=== PATIENT | female | born 1985 | race Caucasian/White ===

== ENCOUNTER → 2023-07-02 | Emergency (ER) | payer BC ==
[~2023-07-02] MED LIST: FAMOTIDINE 20 MG/2 ML VIAL IV ONE; KETOROLAC 30 MG/ML INJ ONE; NA CHLORIDE 0.9% 1,000 ML ONE; ONDANSETRON 4 MG/2 ML VIAL ONE
--- OUTSIDE RECORDS SUMMARY | 2023-07-02 13:42 | XMS REPORT | Clinical Summary ---
Author Name Unknown Organization [facility] Address [address] [place] [address] Care Team Providers Care Professor Of Art Name Role Phone Kalia Brooks MD Primary Care Provider [phone] Radha Campbell MD Unavailable [phone] Per Elder MD Unavailable Mariya Piper MD Unavailable Ike Pickett MD Unavailable Allergies Active Allergy Reactions Criticality Noted Date Comments Adhesive Tape-Silicones Rash Medium 04/08/2021 Latex Hives,Itching,Rash High 05/09/2020 Lidocaine-Epinephrin e Other (See Comments) Medium 10/27/2020 Patient stated when she received Lidocaine with Epi in the [facility] office, she "passed out". [facility] stated that patient may be having a reaction to the Epi. Sulfa (Sulfonamide Antibiotics) Rash Medium 09/12/2020 Topiramate Other (See Comments) 08/08/2021 Makes her sleepy Medications Medication Sig Dispensed Refills Start Date End Date Status LORazepam (ATIVAN) 0.5 mg tablet Take 1 tablet (0.5 mg) by mouth as needed. 0 Active esomeprazole (NexIUM) 40 MG capsule Take 1 capsule (40 mg) by mouth daily. 0 06/16/2019 Active medroxyPROGESTERone (DEPO-PROVERA) 150 mg/mL syrg injection Inject 1 mL (150 mg) into the shoulder, thigh, or buttocks every 3 (three) months. 0 01/21/2021 Active aspirin-acetaminophen -caffeine (EXCEDRIN MIGRAINE) 250-250-65 mg per tablet Take 1 tablet by mouth every 6 (six) hours as needed for headaches. 0 Active ibuprofen (ADVIL,MOTRIN) 200 mg tablet Take 1 tablet (200 mg) by mouth as needed. 0 Active Active Problems No known active problems Encounters Date Type Department Care Team Description 11/30/2022 11:00 AM CDT Telemedicine [facility] Main [facility], 7th [place] [address] Kalia Brooks MD Pituitary adenoma (Primary Dx); Benign neoplasm of cerebral meninges 11/16/2022 1:15 PM CDT Ancillary Procedure [facility] [address] [facility], 4th [place] [address] Sheri Winn APRN Pituitary adenoma; Benign neoplasm of cerebral meninges 11/16/2022 Travel 11/06/2022 12:30 PM CDT Office Visit [facility] [address] [place] [address], 7th [place] [address] Kalia Brooks MD Benign neoplasm of cerebral meninges (Primary Dx); Pituitary adenoma 11/06/2022 10:15 AM CDT Ancillary Procedure [facility] [address] [place] [address], 3rd [place] [address] Tiffani Ruiz APRN Pituitary adenoma 11/06/2022 Orders Only Neuroradiology [address] [place] [id number] Kaci Piper MD 11/06/2022 Travel after 07/02/2022 Surgical History Surgery Date Site/Laterality Comments COLONOSCOPY 06/17/2013 - 06/16/2014 BRAIN SURGERY 06/17/2019 - 06/16/2020 Pituitary Tumor removal UPPER GASTROINTESTINAL ENDOSCOPY 06/17/2005 - 06/16/2006 RECONSTRUCTION BREAST WITH BREAST IMPLANT 06/17/2005 - 06/16/2006 Medical History Medical History Date Comments Hypertension 2016 Migraine 2016 Gastric reflux 2000 Disorder of pituitary gland 2019 Anxiety 2015 Family History Medical History Relation Name Comments Colon cancer Cousin paternal 1st cousin Relation Name Status Comments Cousin paternal 1st cousin Alive Social History Tobacco Use Types Packs/Day Years Used Date Smoking Tobacco: Former Cigarettes 0.5 10 0 06/17/2007 - 06/17/2017 Smokeless Tobacco: Never Tobacco Cessation:Counseling Given: Not Answered Alcohol Use Standard Drinks/Week Comments Not Currently 0 (1 standard drink = 0.6 oz pur e alcohol) Sex and Gender Information Value Date Recorded Sex Assigned at Female 12/10/2020 4:31 PM CDT Gender Identity Female 12/10/2020 4:31 PM CDT Sexual Orientation Straight 12/10/2020 4: 31 PM CDT Job Start Date Occupation Industry Not on file Not on file Not on file Obstetrics History Last Filed Vital Signs Vital Sign Reading Time Taken Comments Blood Pressure 129/92 11/06/2022 12:47 PM CDT Pulse 81 11/06/2022 12:47 PM CDT Temperature 36.2 C (97.2 F) 11/06/2022 1 2:47 PM CDT Respiratory Rate 17 11/06/2022 12:4 7 PM CDT Oxygen Saturation 98% 11/06/2022 12: 47 PM CDT Inhaled Oxygen Concentration - - Weight 119.9 kg (264 lb 5.3 oz) 023 12:44 PM CDT Height - - Body Mass Index 40.06 12/13/2020 8:45 AM CDT Plan of Treatment Upcoming Encounters Date Type Department Care Team Description 11/07/2023 12:15 PM CDT Ancillary Procedure [facility] [address] [place] [address] Sheri Winn, [employer] [address] [place] [address] 11/08/2023 11:00 AM CDT [facility]-Up [facility] [address] [facility] Main [facility], 7th [place] [address] Sheri Winn, [employer] [address] [place] [address] Health Maintenance Due Date Last Done Comments COVID-19 Vaccination (#1) 1985 Procedures Procedure Name Priority Date/Time Associated Diagnosis Comments MRI BRAIN W WO CONTRAST Routine 11/16/2022 2:38 PM CDT Pituitary adenoma Benign neoplasm of cerebral meninges MRI BRAIN W WO CONTRAST Routine 11/06/2022 11:41 AM CDT Pituitary adenoma after 07/02/2022 Results * MRI Brain with and without Contrast (11/16/2022 2:38 PM CDT) Only the most recent of2 resultswithin the time period is included. 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 Narrative 11/16/2022 4:22 PM CDT FULL RESULT: EXAMINATION: MRI BRAIN W WO CONTRAST on 11/16/2022 2:38 PM CLINICAL HISTORY: Pituitary adenoma Benign neoplasm of cerebral meninges INDICATION: Intracranial neoplasm (known or suspected), Metastatic cancer suspected, MRI today did not include the left calvarium meningioma- so please image this area COMPARISON: MRI brain/sella 10/13/2021 and MRI brain 04/08/2021, 05/09/2020. TECHNIQUE: MRI of the brain without and with administration of intravenous contrast. FINDINGS: Intracranial: There is absence of the superior part of the right tentorium with medial and inferior parietal and occipital lobe herniation. 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 No cerebellar tonsillar ectopia. There is no acute hemorrhage or acute infarct. There is no mass effect or midline shift. The ventricles and extra-axial spaces are appropriate for age. There is no worrisome parenchymal or leptomeningeal enhancement. Changes related to transsphenoidal resection. Please see dedicated MRI sella study from 11/06/2022. Bone: Stable focus of enhancement in the left parietal calvarium measuring 1.1 cm on series 16, image 19. There is faint intrinsic T1 hyperintensity and a speckled appearance of a hemangioma on CT. No interval change since at least 05/09/2020. Extracranial: The orbits are unremarkable. The visualized paranasal sinuses are predominantly clear. The mastoid air cells are clear. Procedure Note Cher Negron MD - 11/16/2022 FULL RESULT: EXAMINATION: MRI BRAIN W WO CONTRAST on 11/16/2022 2:38 PM CLINICAL HISTORY: Pituitary adenoma Benign neoplasm of cerebral meninges INDICATION: Intracranial neoplasm (known or suspected), Metastatic cancersuspected, MRI today did not include the left calvarium meningioma- soplease image this area COMPARISON: MRI brain/sella 10/13/2021 and MRI brain 04/08/2021,05/09/2020. TECHNIQUE: MRI of the brain without and with administration of intravenouscontrast. FINDINGS: Intracranial: There is absence of the superior part of the right tentorium with medialand inferior parietal and occipital lobe herniation. This finding is mostlikely incidental, present since at least 10/10/2020, thought to becongenital. No cerebellar tonsillar ectopia. There is no acute hemorrhage or acute infarct. There is no mass effect or midline shift. The ventricles and extra-axial spaces are appropriate for age. There is no worrisome parenchymal or leptomeningeal enhancement. Changes related to transsphenoidal resection. Please see dedicated MRIsella study from 11/06/2022. Bone: Stable focus of enhancement in the left parietal calvarium measuring 1.1cm on series 16, image 19. There is faint intrinsic T1 hyperintensity keisha speckled appearance of a hemangioma on CT. No interval change since atleast 05/09/2020. Extracranial: The orbits are unremarkable. The visualized paranasal sinuses are predominantly clear. The mastoid air cells are clear. 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 Sheri Winn APRN [facility] [place] after 07/02/2022 Care Teams Professor Of Art Relationship Specialty Start Date End Date Kalia Brooks MD [address] [place] [address] [phone] PCP - General Neurosurgery 12/01/20 Radha Campbell MD [address] [place] [address] [phone] Consulting Physician Ophthalmology 04/04/21 Per Elder MD [address] [place] [address] [phone] Consulting Physician Endocrinology 04/11/21 Mariya Piper MD [address] [place] [id number] Consulting Physician Neuro-Oncology 05/09/21 Ike Pickett MD [address] [place] [id number] Consulting Physician Pain Management 09/21/21
[2023-07-02 14:28] LABS: Absolute Lymphocytes (CBC) 0.4 K/uL (0.7-4.9); Hematocrit 45.9 % (36.0-45.0); Lymphocytes % 2.7 % (15.3-44.8); MCV 88.8 fL (80-100); MPV 8.4 fL (7.6-11.3); Platelets 251 thou/uL (152-406); RBC Red Blood Cell Count 5.17 M/uL (3.86-4.86)
[2023-07-02 14:32] LABS: Urine Bacteria None Seen /HPF (<20); Urine Bilirubin NEGATIVE (Negative); Urine Blood 1+ (Negative); Urine Clarity Extremely Turbid (Clear); Urine Color Yellow (Yellow); Urine Glucose NEGATIVE (Negative); Urine Mucus 2+ /HPF (None Seen); Urine Protein TRACE (Negative); Urine Urobilinogen Normal (Normal); Urine pH 5.5 (5.0-7.0)
[2023-07-02 14:47] LABS: Albumin 4.1 g/dL (3.4-5.0); Bilirubin Total 2.1 mg/dL (0.2-1.0); Potassium 3.8 mEq/L (3.5-5.1); Protein, Total 7.6 g/dL (6.4-8.2)
--- NOTE | 2023-07-02 15:48 | RAD REPORT ---
EXAM DESCRIPTION: CT - Abdomen Pelvis W Contrast - 07/02/2023 3:10 pm CLINICAL HISTORY: ABD PAIN COMPARISON: No comparisons TECHNIQUE: Thin cut axial CT imaging of the abdomen and pelvis was performed following intravenous a dministration of 100 mL Isovue 300. Multiplanar reformats were generated and reviewed. All CT scans are performed using dose optimization technique as appropriate and may include automated exposure control or mA/KV adjustment according to patient size. FINDINGS: No suspicious findings in the lung bases. The liver, spleen, adrenal glands, and pancreas show no suspicious findings. Gallbladder was surgical ly removed Symmetric renal function is seen with no hydronephrosis or suspicious renal mass. Mildly prominent distal small bowel loops with fluid opacification. This extends to the level of the terminal ileum. Fluid opacification within the ascending colon as well. No Bowel wall thickening. No free air, free fluid or inflammatory stranding. No hernia, mass or bulky lymphadenopathy. The urinary bladder is without significant finding. No suspicious bony findings. IMPRESSION: Fluid opacification within mildly prominent distal small bowel loops, and within the asc ending colon. Findings are nonspecific and may relate to infectious or inflammatory enterocolitis.
--- NOTE | 2023-07-02 15:54 | EDPHYS ---
Physician Documentation [facility] Name: Becky Menjivar Age: 38 yrs Sex: Female : 1985 Arrival Date: 07/02/2023 Time: 13:39 Bed 6 Private MD: ED Physician Johnnie Lam HPI: 07/02 14:49 This 38 yrs old Female presents to ER via Ambulatory with complaints of kb Nausea/Vomiting/Diarrhea. 14:49 Pt is a 38 year old female who presents for nausea, vomiting, diarrhea and abd pain kb that started at 0200 today. Denies fever. Pain is to lateral abd bilaterally. . Historical: - Allergies: 13:48 Sulfa (Sulfonamide Antibiotics); ap3 - PMHx: 13:48 Hypertensive disorder; ap3 - Immunization history:: Client reports having NOT received the Covid vaccine. - Social history:: Smoking status: Patient denies any tobacco usage or history of. ROS: 14:49 Constitutional: Negative for fever, chills, and weight loss, kb 14:49 Abdomen/GI: Positive for abdominal pain, nausea, vomiting, and diarrhea, 14:49 All other systems are negative, Exam: 14:49 Head/Face: Normocephalic, atraumatic. ENT: Moist Mucous membranes Cardiovascular: kb Regular rate Respiratory: Respirations even and unlabored. No increased work of breathing. Talking in full sentences Abdomen/GI: Soft, non-tender. No distention Skin: Warm, dry with normal turgor. Normal color. MS/ Extremity: Pulses equal, no cyanosis. Neurovascular intact. Full, normal range of motion. Neuro: Awake and alert, GCS 15, oriented to person, place, time, and situation. Moves all extremities. Normal gait. 14:49 Constitutional: The patient appears alert, awake, uncomfortable, Vital Signs: 13:46 BP 138 / 108; Pulse 116; Resp 19; Pulse Ox 100% ; Weight 108.86 kg; Height 5 ft. 9 in. ap3 ; Pain 7/10; 14:30 BP 129 / 85; Pulse 66; Resp 17; Pulse Ox 100% on R/A; me1 16:14 BP 125 / 84; Pulse 68; Resp 14; Pulse Ox 99% ; ko1 13:46 Body Mass Index 35.44 (108.86 kg, 175.26 cm) ap3 13:46 Pain Scale: Adult ap3 MDM: 13:44 Patient medically screened. kb 14:50 Data reviewed: vital signs, nurses notes. kb 15:53 Differential diagnosis: Nonspecific abd pain, gastritis, diverticulitis, viral kb gastroenteritis, gastroenteritis, colitis. Counseling: I had a detailed discussion with the patient and/or guardian regarding the historical points, exam findings, and any diagnostic results supporting the discharge/admit diagnosis, lab results, radiology results, the need for outpatient follow up, a family practitioner, to return to the emergency department if symptoms worsen or persist or if there are any questions or concerns that arise at home. 07/02 13:49 Order name: CBC with Diff kb 07/02 13:49 Order name: CMP; Complete Time: 14:48 kb 07/02 13:49 Order name: Lipase; Complete Time: 14:48 kb 07/02 13:49 Order name: Test, Urine; Complete Time: 14:33 kb 07/02 13:49 Order name: Urinalysis w/ reflexes; Complete Time: 14:33 kb 07/02 14:57 Order name: CT Abd/Pelvis - IV Contrast Only; Complete Time: 15:50 kb 07/02 13:49 Order name: IV Saline Lock; Complete Time: 14:20 kb 07/02 13:49 Order name: Labs collected and sent; Complete Time: 14:20 kb 07/02 15:51 Order name: PO challenge kb Administered Medications: 14:29 Drug: TORadol - Ketorolac IVP 15 mg IVP once Route: IVP; Site: right antecubital; me1 14:30 Drug: NS 0.9% IV 1000 ml IV at 1 bolus Per protocol; 1000 mL bolus Route: IV; Rate: 1 me1 bolus; Site: right antecubital; 14:30 Drug: Famotidine IVP 20 mg IVP once; dilute with 10 mL 0.9% NaCl; give over 2 minutes me1 Route: IVP; Site: right antecubital; 14:30 Drug: Ondansetron IVP 4 mg IVP once; over 2 minutes Route: IVP; Site: right antecubital;me1 Disposition: 16:32 Co-signature as Attending Physician, Johnnie Lam MD I reviewed the patient's care rn provided by the Advanced Practice Provider and agree with the diagnosis and treatment plan. Disposition Summary: 07/02/23 15:53 Discharge Ordered Notes: Location: Home kb Condition: Stable kb Diagnosis - Enterocolitis kb Followup: kb - With: Emergency Department - When: As needed - Reason: Worsening of condition Followup: kb - With: Private Physician - When: 2 - 3 days - Reason: Recheck today's complaints, Continuance of care, Re-evaluation by your physician Discharge Instructions: - Discharge Summary Sheet kb - Colitis kb Forms: - Medication Reconciliation Form kb - Thank You Letter kb - Antibiotic Education kb - Prescription Opioid Use kb - Patient Portal Instructions kb - Leadership Thank You Letter kb Prescriptions: - ondansetron 4 mg Oral Tablet,disintegrating - take 1 tablet ORAL route every 6 hours As needed; 12 tablet; Refills: 0, kb Product Selection Permitted - Augmentin 875-125 mg Oral Tablet - take 1 tablet ORAL route every 12 hours for 10 days; 20 tablet; Refills: 0, kb Product Selection Permitted - dicyclomine 20 mg Oral tablet - take 1 tablet ORAL route 4 times per day As needed; 20 tablet; Refills: 0, kb Product Selection Permitted Signatures: Dispatcher [employer] EDKY Bibi Majano, CHIEF CONTRACT OFFICER-C CHIEF CONTRACT OFFICER-Ckb Johnnie Lam MD MD rn Prokisch, Amanda, RN RN ap3 Ashtyn Sanchez RN RN me1 Corrections: (The following items were deleted from the chart) 13:49 13:48 Allergies: No Known Allergies; ap3 ap3
--- NOTE | 2023-07-02 15:54 | ER ---
Nurse's Notes [facility] Name: Becky Menjivar Age: 38 yrs Sex: Female : 1985 Arrival Date: 07/02/2023 Time: 13:39 Bed 6 Private MD: Diagnosis: Enterocolitis Presentation: 07/02 13:46 Chief complaint: Patient states: she started vomiting at approx 0230 this morning. ap3 Patient has taken Bentyl and zofran with no relief. Patient reports she is also having diarrhea. Coronavirus screen: At this time, the client does not indicate any symptoms associated with coronavirus-19. Ebola Screen: No symptoms or risks identified at this time. Initial Sepsis Screen: Does the patient meet any 2 criteria? HR > 90 bpm. Does the patient have a suspected source of infection? Yes: Acute abdominal pain. Risk Assessment: Do you want to hurt yourself or someone else? Patient reports no desire to harm self or others. Onset of symptoms was July 02, 2023 at 02:30. 13:46 Method Of Arrival: Ambulatory ap3 13:46 Acuity: ASH 3 ap3 Triage Assessment: 13:49 General: Appears uncomfortable, Behavior is cooperative, crying. Pain: Complains of ap3 pain in abdomen Pain currently is 7 out of 10 on a pain scale. Pain began this morning. Neuro: Level of Consciousness is awake, alert, obeys commands, Oriented to person, place, time, situation, Appropriate for age. Cardiovascular: Patient's skin is warm and dry. Respiratory: Airway is patent Respiratory effort is even, unlabored, Respiratory pattern is regular, symmetrical. GI: Reports lower abdominal pain, upper abdominal pain, diarrhea, nausea, vomiting. Historical: - Allergies: 13:48 Sulfa (Sulfonamide Antibiotics); ap3 - PMHx: 13:48 Hypertensive disorder; ap3 - Immunization history:: Client reports having NOT received the Covid vaccine. - Social history:: Smoking status: Patient denies any tobacco usage or history of. Screenin:[facility] ED Fall Risk Assessment (Adult) History of falling in the last 3 months, ap3 including since admission No falls in past 3 months (0 pts). Abuse screen: Denies threats or abuse. Nutritional screening: No deficits noted. Tuberculosis screening: No symptoms or risk factors identified. Assessment: 14:30 General: Appears uncomfortable, ill, well groomed, well developed, well nourished, me1 Behavior is calm, cooperative, appropriate for age, Reports she started vomiting at approx 0230 this morning. Patient has taken Bentyl and zofran with no relief. Patient reports she is also having diarrhea. Pain: Complains of pain in abdomen Pain does not radiate. Pain currently is 7 out of 10 on a pain scale. Quality of pain is described as crampy, Pain began suddenly, Is intermittent, episodic. Neuro: Level of Consciousness is awake, alert, obeys commands, Oriented to person, place, time, situation, Appropriate for age. Cardiovascular: Capillary refill < 3 seconds Patient's skin is warm and dry. Respiratory: Airway is patent Respiratory effort is even, unlabored, Respiratory pattern is regular, symmetrical. GI: Abdomen is obese, Stools are reported to be diarrhea. Reports diarrhea, nausea, vomiting, since 02:30 this morning. Vital Signs: 13:46 BP 138 / 108; Pulse 116; Resp 19; Pulse Ox 100% ; Weight 108.86 kg; Height 5 ft. 9 in. ap3 ; Pain 7/10; 14:30 BP 129 / 85; Pulse 66; Resp 17; Pulse Ox 100% on R/A; me1 16:14 BP 125 / 84; Pulse 68; Resp 14; Pulse Ox 99% ; ko1 13:46 Body Mass Index 35.44 (108.86 kg, 175.26 cm) ap3 13:46 Pain Scale: Adult ap3 ED Course: 13:42 Patient arrived in ED. ae5 13:43 Bibi Majano FNP-C [facility]. kb 13:43 Johnnie Lam MD is Attending Physician. kb 13:48 Triage completed. ap3 13:50 Arm band placed on left wrist. ap3 14:20 Ashtyn Sanchez, MUKESH is Primary Nurse. me1 14:20 Inserted saline lock: 22 gauge in right antecubital area, using aseptic technique. me1 14:20 CBC with Diff Sent. me1 14:20 CMP Sent. me1 14:20 Lipase Sent. me1 14:20 Test, Urine Sent. me1 14:20 Urinalysis w/ reflexes Sent. me1 14:30 Patient has correct armband on for positive identification. Call light in reach. Side me1 rails up X 1. Provided Education on: POC. Verbalized understanding. . 14:30 No provider procedures requiring assistance completed. me1 15:12 CT Abd/Pelvis - IV Contrast Only In Process Unspecified. EDMS 16:14 IV discontinued, intact, bleeding controlled, No redness/swelling at site. Pressure ko1 dressing applied. Administered Medications: 14:29 Drug: TORadol - Ketorolac IVP 15 mg IVP once Route: IVP; Site: right antecubital; me1 14:30 Drug: NS 0.9% IV 1000 ml IV at 1 bolus Per protocol; 1000 mL bolus Route: IV; Rate: 1 me1 bolus; Site: right antecubital; 14:30 Drug: Famotidine IVP 20 mg IVP once; dilute with 10 mL 0.9% NaCl; give over 2 minutes me1 Route: IVP; Site: right antecubital; 14:30 Drug: Ondansetron IVP 4 mg IVP once; over 2 minutes Route: IVP; Site: right antecubital;me1 Medication: 14:30 VIS not applicable for this client. me1 Outcome: 15:53 Discharge ordered by MD. love 16:14 Discharged to home ambulatory, with family, ko1 16:14 Condition: improved 16:14 Discharge instructions given to patient, family, Instructed on discharge instructions, follow up and referral plans. medication usage, Demonstrated understanding of instructions, follow-up care, medications, Prescriptions given X 3, 16:19 Patient left the ED. ko1 Signatures: Dispatcher [employer] EDGA Bibi Majano, ANAMARIA-C ADJUNCT NURSING FACULTY-Joselyn Amato RN RN ap3 Bell Schwartz RN RN ko1 Ashtyn Sanchez RN RN me1 Cat Berry ae5 Corrections: (The following items were deleted from the chart) 13:49 13:48 Allergies: No Known Allergies; ap3 ap3 14:30 13:46 Chief complaint: Patient states: she started vomiting at approx 0230 this me1 morning. Patient has taken Bentyl and zofran with no relief. Patient reports she is also having diarrhea ap3
[2023-07-02 17:47] VITALS: BP 125/84; O2SAT 99
[2023-07-02 19:35] LABS: Blood Morphology Comment NOT SEEN (NOT SEEN); Platelet Estimate ADEQ; White Blood Cell Scan OK (OK)
== END ==
LOC: ER 13:39
DX: K52.9 Noninfective gastroenteritis and colitis, unspecified (principal); I10 Essential (primary) hypertension; Z88.2 Allergy status to sulfonamides; Z28.310 Unvaccinated for COVID-19
CPT/HCPCS: 85025; 81001; 36415; 81025; 83690; 80053; 74177; 96375; 96374; 99284; Q9967; J2405; J7030